=== PATIENT | male | born 1960 | race Caucasian/White ===

== ENCOUNTER 2017-11-15 12:46 | Inpatient (IN) | payer MEDICARE ==
[~2017-11-15] VITALS: Ht 190.5 cm; Wt 90.3 kg
[2017-11-15 13:21] VITALS: BP 118/80
[2017-11-15] MEDS ORDERED: ZOLPIDEM TARTRATE 10 MG TABLET PO PRN (13:45)
[2017-11-15] MEDS ORDERED: LORazepam 2 MG TABLET PO PRN (13:45)
[2017-11-15] MEDS ORDERED: PNEUMOCOCCAL VACCINE POLYVALENT 0.5 ML VIAL [PPSV23] IM ONE (14:45)
[2017-11-15 17:08] VITALS: BP 143/84
[2017-11-16 05:09] VITALS: BP 127/81
[2017-11-16 08:00] VITALS: BP 119/71
[2017-11-16 08:26] LABS: BASOPHILS % (AUTO) 0.7 % (0.0-2.0); EOSINOPHILS % (AUTO) 2.3 % (1.0-6.0); HEMATOCRIT 43.7 % (41-53); HEMOGLOBIN 14.8 g/dL (13.5-17.5); LYMPHOCYTES # (AUTO) 1.8 K/uL (1.0-4.8); LYMPHOCYTES % (AUTO) 23.4 % (22.0-44.0); MEAN CORPUSCULAR HGB CONC 33.8 G/dL (31.0-37.0); MEAN CORPUSCULAR VOLUME 92 fL (80-100); MONOCYTES # (AUTO) 0.4 K/uL (0.1-1.0); MONOCYTES % (AUTO) 5.6 % (2.0-9.0); NEUTROPHILS # (AUTO) 5.2 K/uL (1.8-7.7); PLATELET COUNT (AUTO) 182 K/uL (150-450); RED BLOOD CELL COUNT(AUTO) 4.76 MIL/uL (4.50-5.90); RED CELL DISTRIBUTION WIDTH 13.7 % (11.5-14.5)
[2017-11-16] MEDS: NICOTINE 14 MG/24 HOUR PATCH TD SCH (09:00)
[2017-11-16 09:22] LABS: ALBUMIN 3.9 g/dL (3.4-5.0); BILIRUBIN,TOTAL 0.7 mg/dL (0.1-1.0); CALCIUM, TOTAL 8.8 mg/dL (8.8-10.5); CHOL/HDL RATIO 3.9 (4.2-7.3); CREATININE 1.3 mg/dL (0.60-1.30); FREE T4 (FREE THYROXINE) 0.94 ng/dL (0.76-1.46); POTASSIUM 4.1 mmol/L (3.5-5.1); THYROID STIMULATING HORMONE 1.22 uIU/mL (0.36-3.74); TOTAL PROTEIN, SERUM 7.3 g/dL (6.4-8.2)
[2017-11-16] MEDS: GABAPENTIN 300 MG CAPSULE PO SCH ×3 (12:55→20:10)
[2017-11-16 16:16] VITALS: BP 105/60
[2017-11-17 05:20] VITALS: BP 105/77
[2017-11-17] MEDS: NICOTINE 14 MG/24 HOUR PATCH TD SCH (08:15)
[2017-11-17] MEDS: GABAPENTIN 300 MG CAPSULE PO SCH ×4 (08:15→20:03)
[2017-11-17] MEDS: ESCITALOPRAM OXALATE 10 MG TABLET PO SCH (08:15)
[2017-11-17 08:19] VITALS: BP 99/64
[2017-11-17 16:20] VITALS: BP 114/63
[2017-11-18 00:45] VITALS: BP 122/74
[2017-11-18 08:12] VITALS: BP 109/69
[2017-11-18] MEDS: ESCITALOPRAM OXALATE 10 MG TABLET PO SCH (08:29)
[2017-11-18] MEDS: GABAPENTIN 300 MG CAPSULE PO SCH ×4 (08:29→20:14)
[2017-11-18] MEDS: NICOTINE 14 MG/24 HOUR PATCH TD SCH (08:36)
[2017-11-18] MEDS ORDERED: ALBUTEROL SULFATE HFA 90 MCG/PUFF 8 GM INHALER IH PRN (09:15)
[2017-11-18 16:15] VITALS: BP 121/84
[2017-11-19 01:20] VITALS: BP 118/69
[2017-11-19] MEDS: GABAPENTIN 300 MG CAPSULE PO SCH ×4 (08:08→20:02)
[2017-11-19] MEDS: ESCITALOPRAM OXALATE 10 MG TABLET PO SCH (08:08)
[2017-11-19] MEDS: NICOTINE 14 MG/24 HOUR PATCH TD SCH (08:09)
[2017-11-19 08:30] VITALS: BP 122/60
[2017-11-19 16:10] VITALS: BP 132/73
[2017-11-20 00:10] VITALS: BP 103/64
[2017-11-20] MEDS: ESCITALOPRAM OXALATE 10 MG TABLET PO SCH (08:41)
[2017-11-20] MEDS: GABAPENTIN 300 MG CAPSULE PO SCH ×4 (08:41→20:07)
[2017-11-20 09:01] VITALS: BP 111/70
[2017-11-20 16:39] VITALS: BP 114/65
[2017-11-21 00:01] VITALS: BP 108/67
[2017-11-21] MEDS: GABAPENTIN 300 MG CAPSULE PO SCH ×4 (08:06→20:41)
[2017-11-21] MEDS: ESCITALOPRAM OXALATE 10 MG TABLET PO SCH (08:06)
[2017-11-21 08:35] VITALS: BP 110/62
[2017-11-21 16:54] VITALS: BP 130/73
[2017-11-21] MEDS ORDERED: ESCI10TA54 PO (17:04)
[2017-11-22 04:38] VITALS: BP 128/78
[2017-11-22] MEDS: ESCITALOPRAM OXALATE 10 MG TABLET PO SCH (08:16)
[2017-11-22] MEDS: GABAPENTIN 300 MG CAPSULE PO SCH ×2 (08:16→12:21)
[2017-11-22 08:35] VITALS: BP 127/78
[2017-11-22] MEDS ORDERED: GABA-531 PO (09:06)
== END 2017-11-22 12:27 | DRG 885 ==
LOC: B2X 13:32
DX: F33.2 Major depressive disorder, recurrent severe without psychotic features (principal); I95.9 Hypotension, unspecified; R45.851 Suicidal ideations; G40.909 Epilepsy, unspecified, not intractable, without status epilepticus; E78.5 Hyperlipidemia, unspecified; H91.90 Unspecified hearing loss, unspecified ear; J45.909 Unspecified asthma, uncomplicated; Z59.0 Homelessness; Z82.49 Family history of ischemic heart disease and other diseases of the circulatory system; Z91.5 Personal history of self-harm; Z28.21 Immunization not carried out because of patient refusal; Z80.9 Family history of malignant neoplasm, unspecified; Z79.899 Other long term (current) drug therapy
CPT/HCPCS: 83036; 84439; 84443; 90471